=== PATIENT | male | born 1985 | race Caucasian/White ===

== ENCOUNTER 2019-06-03 10:09 | Emergency (ER) | payer BC ==
[~2019-06-03] VITALS: Ht 193 cm; Wt 114.3 kg
[2019-06-03 10:25] VITALS: BP 123/76
--- NOTE | 2019-06-03 11:33 | NUR ---
PT TAKEN TO BED 2.
--- NOTE | 2019-06-03 11:56 | NUR ---
BIB SELF C/O RIGHT EAR PAIN/FLUID IN EAR X 4-5 DAYS. PT DENIES INJURY/SWIMMING LEADING UP TO EAR PAIN. WOKE UP THURSDAY WITH PRESSURE IN EAR, AND FEELING OF FLUID. DENIES ANY DRAINAGE OR RINGING. PT REPORTED COLD SYMPTOMS STARTING YESTERDAY. PMH: PTSD, TBI, Ringing in ears, Ankle injury, Anxiety, Depression NKA
[2019-06-03 12:28] VITALS: BP 123/68
--- NOTE | 2019-06-03 12:28 | NUR ---
Patient discharged with v/s stable. Written and verbal after care instructions given and explained. Patient alert, oriented and verbalized understanding of instructions. Ambulatory with steady gait. All questions addressed prior to discharge. ID band removed. Patient advised to follow up with PMD. Rx of AMOXICLLIN, MOTRIN, FLONASE, NORCO given. Patient educated on indication of medication including possible reaction and side effects. Opportunity to ask questions provided and answered.
== END 2019-06-03 12:28 | disposition home or self-care (01) ==
LOC: MED 10:09
DX: H66.91 Otitis media, unspecified, right ear (principal); F43.10 Post-traumatic stress disorder, unspecified; F41.9 Anxiety disorder, unspecified; F32.9 Major depressive disorder, single episode, unspecified
CPT/HCPCS: 99283